=== PATIENT | male | born 1950 | race Caucasian/White ===

== ENCOUNTER → 2017-12-11 | Outpatient (CLI) | payer OTHER | END | disposition home or self-care (01) | LOC: RAH 13:28 | PROVIDERS: ATTEND Urology | DX: K80.20 Calculus of gallbladder without cholecystitis without obstruction (principal); N20.0 Calculus of kidney; K40.90 Unilateral inguinal hernia, without obstruction or gangrene, not specified as recurrent; M47.896 Other spondylosis, lumbar region | CPT/HCPCS: 74176 ==

== ENCOUNTER → 2018-05-21 | Outpatient (CLI) | payer OTHER ==
[~2018-05-21] MED LIST: IOHEXOL 350 MG/ML 100ML INFUS..BTL IV ONE
== END | disposition home or self-care (01) ==
LOC: OIH 07:46
PROVIDERS: ATTEND Urology
DX: N20.0 Calculus of kidney (principal); N40.0 Benign prostatic hyperplasia without lower urinary tract symptoms
CPT/HCPCS: 74177; Q9967